=== PATIENT | female | born 2000 | race Two or more races ===

== ENCOUNTER 2021-02-06 13:50 | Emergency (ER) | payer OTHER ==
[~2021-02-06] VITALS: Ht 160 cm; Wt 62.6 kg
[2021-02-06 13:50] VITALS: BP 128/88
[2021-02-06] MEDS ORDERED: ACETAMINOPHEN/CODEINE#3 (300/30mg) TAB PO ONE (16:00)
== END 2021-02-06 16:58 | disposition home or self-care (01) ==
LOC: ER 13:50
DX: M79.645 Pain in left finger(s) (principal); Z89.022 Acquired absence of left finger(s)
CPT/HCPCS: 29130; 73140